=== PATIENT | female | born 1985 | race Caucasian/White ===

== ENCOUNTER 2017-09-02 12:09 | Emergency (ER) | payer BC ==
--- OUTSIDE RECORDS SUMMARY | 2017-09-02 12:11 | XMS REPORT | Clinical Summary ---
:1985 Author Organization [facility] Address [address] [place] [address] Phone Care Team Providers Name Role Phone Unavailable Primary Care Provider Unavailable Allergies Active Allergy Reactions Severity Noted Date Comments Cephalosporins Anaphylaxis High 04/05/2012 Wheat Containing Prod Other (See Comments) High 04/30/2016 GI upset Amoxicillin-Pot Clavulanate 04/27/2017 Anaphylaxis Adhesive Bandage Itching 04/30/2016 Egg 12/09/2015 GI upset Gluten Protein 12/09/2015 GI upset Hydrocodone Itching 04/05/2012 Hydrocodone-Acetaminophen Nausea And Vomiting 12/09/2015 Lactose 12/09/2015 GI upset Latex Itching 10/14/2015 Silk Other (See Comments) 04/30/2016 Body rejects Lecithin, Soy 12/09/2015 GI upset Sulfa (Sulfonamide Antibiotics) Nausea Only 04/30/2016 Current Medications Prescription Sig. Disp. Refills Start Date End Date Status pentosan polysulfate Take 100 mg by Active (ELMIRON) 100 mg mouth daily . capsule montelukast Take 10 mg by Active (SINGULAIR) 10 mg mouth nightly. tablet levocetirizine Take 5 mg by Active (XYZAL) 5 MG tablet mouth every evening. thyroid, pork, 90 mg Take 30 mg by Active Tab mouth daily. diazepam (DIAZEPAM) 5 10 mg by Active mg/mL Conc Submucosal anal canal route as needed Vaginal Suppository. Missing or Take by mouth Active Non-Formulary Anastacio mood, 3 Medication caps daily . cholecalciferol, Take 50,000 Active vitamin D3, 50,000 Units by mouth unit Tab once a week. triamcinolone 2 sprays by Active (NASACORT) 55 mcg Nasal route nasal inhaler daily. Missing or Take 750 mg by Active Non-Formulary mouth nightly Medication NEFTALI . valACYclovir Take 500 mg by Active (VALTREX) 1000 MG mouth as needed tablet . NORETHINDRONE-E.ESTRA Take 1 tablet Active DIOL-IRON (TAYTULLA by mouth ORAL) nightly . MECOBAL/LEVOMEFOLAT Take 2 mg by Active CA/B6 PHOS (METANX mouth daily . ORAL) ascorbate Take 1 tablet Active calcium-bioflavonoid by mouth daily. (FRANCESCO-C WITH BIOFLAVONOIDS) 1,000-200 mg Tab prasterone, dhea, Take 1 tablet Active (DHEA) 25 mg Tab by mouth daily . methen-m.blue-s.phos- Take 1 capsule Active phsal-hyo (URIBEL) by mouth 4 118-10-40.8-36 mg Cap (four) times daily as needed . hydrOXYzine (ATARAX) Take 25 mg by Active 25 MG tablet mouth nightly. lactase (LACTAID) Take 1 tablet Active 3,000 unit tablet by mouth 3 (three) times daily with meals. promethazine Take 1 tablet 30 tablet 0 12/15/2016 Active (PHENERGAN) 25 MG (25 mg total) tablet by mouth every 6 (six) hours as needed for Nausea. B Take 3 tablets Active fmtxeag-wuyxsk-Ca-FA by mouth daily. 1,000-75-1 mg-mg-mg/15 mL Liqd Missing or 500 mg daily Active Non-Formulary D-mamose caps-3 MedicationIndications caps . : IC acetaminophen-codeine Take 1 tablet Active (TYLENOL #3) 300-30 by mouth 3 mg per tablet (three) times daily as needed for Pain. CALCIUM Take 2 tablets Active GLYCEROPHOSPHATE by mouth 3 (PRELIEF ORAL) (three) times daily with meals If eating food with acid . Missing or 1-2 capsules Active Non-Formulary every 4 (four) Medication hours as needed Jessica leg cramps . clindamycin (CLEOCIN) Take 300 mg by Active 300 MG capsule mouth 3 (three) times daily. ibuprofen (IBUPROFEN) Take by mouth. Active 100 mg Chew predniSONE Take 10 mg by Active (DELTASONE) 10 MG mouth daily. tablet TURMERIC ROOT EXTRACT Take by mouth 12/09/19 Discontinued ORAL daily. 17 phenazopyridine Take 1 tablet 10 tablet 0 12/17/2015 12/09/19 Discontinued (PYRIDIUM) 200 MG (200 mg total) 17 tablet by mouth 3 (three) times daily. promethazine Take 25 mg by 12/16/19 Discontinued (PHENERGAN) 25 MG mouth every 6 17 tablet (six) hours as needed for Nausea. acetaminophen-codeine Take 1 tablet 12/16/19 Discontinued (TYLENOL #3) 300-30 by mouth every 17 mg per tablet 8 (eight) hours as needed for Pain . Missing or Source Naturals 12/09/19 Discontinued Non-Formulary Wellness 17 Medication Formula . vitamin E 400 UNIT Take 400 Units 12/09/19 Discontinued capsule by mouth daily. 17 ibuprofen Take 600 mg by 12/09/19 Discontinued (ADVIL,MOTRIN) 600 MG mouth every 6 17 tablet (six) hours as needed for Pain. Missing or Take by mouth 12/09/19 Discontinued Non-Formulary nightly Unisom 17 Medication . Missing or Take by mouth 12/09/19 Discontinued Non-Formulary nightly 17 Medication Minastrin 24 chew FE . ciprofloxacin HCl Take 1 tablet 10 tablet 0 12/15/2016 12/21/19 (CIPRO) 500 MG tablet (500 mg total) 17 by mouth 2 (two) times daily for 5 days. phenazopyridine Take 1 tablet 30 tablet 0 04/27/2017 05/07/20 (PYRIDIUM) 100 MG (100 mg total) 17 tablet by mouth 3 (three) times daily as needed for Pain for up to 10 days. promethazine Take 1 tablet 40 tablet 0 04/27/2017 05/07/20 (PHENERGAN) 25 MG (25 mg total) 17 tablet by mouth every 6 (six) hours as needed for Nausea for up to 10 days. acetaminophen-codeine Take 1 tablet 40 tablet 0 04/27/2017 05/07/20 (TYLENOL #4) 300-60 by mouth every 17 mg per tablet 4 (four) hours as needed for Pain for up to 10 days. Max Daily Amount: 6 tablets ciprofloxacin HCl Take 1 tablet 10 tablet 0 04/27/2017 05/02/20 (CIPRO) 500 MG tablet (500 mg total) 17 by mouth 2 (two) times daily for 5 days. 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 S/P cystoscopy 12/17/2015 Encounters Date Type Specialty Care Team Description 04/27/2017 Hospital Encounter Griffin Turner MD 04/27/2017 Procedure Pass 04/27/2017 Surgery Griffin Turner CYSTOSCOPY MD Felice 04/26/2017 Anesthesia Event Byron Draper MD 04/13/2017 Hospital Encounter Pre-Admission Griffin Turner MD 12/15/2016 Hospital Encounter Griffin Turner MD 12/15/2016 Procedure Pass 12/15/2016 Surgery Griffin Turner CYSTOSCOPY,HYDRODIS MD Felice TENTVLADISLAV 12/14/2016 Anesthesia Event Jorge Rondon MD 12/08/2016 Hospital Encounter Pre-Admission Griffin Turner MD 12/08/2016 Hospital Encounter Pre-Admission Griffin Turner MD 12/01/2016 Orders Only Urology Melonie Cristobal 11/10/2016 Hospital Encounter Pre-Admission Griffin Turner MD 11/10/2016 Hospital Encounter Griffin Turner MD 11/10/2016 Procedure Pass 11/09/2016 Anesthesia Event Rolly Ritchie MD 10/21/2016 Orders Only Urology Melonie Cristobal after 09/01/2016 Social History Tobacco Use Types Packs/Day Years Used Date Never Smoker Smokeless Tobacco: Never Used Alcohol Use Drinks/Week oz/Week Comments Yes rarely, 2 glasses of wine/month. Sex Assigned at Date Recorded Not on file Last Filed Vital Signs Vital Sign Reading Time Taken Blood Pressure 145/85 04/27/2017 11:35 AM [employer] Pulse 88 04/27/2017 12:29 PM [employer] Temperature 36.4 C (97.6 F) 04/27/2017 12:29 PM [employer] Respiratory Rate 18 04/27/2017 11:35 AM [employer] Oxygen Saturation 97% 04/27/2017 12:29 PM [employer] Inhaled Oxygen Concentration - - Weight 80.1 kg (176 lb 9.6 oz) 04/13/2017 3:15 PM [employer] Height 165.1 cm (5' 5") 04/13/2017 3:15 PM [employer] Body Mass Index 29.39 04/13/2017 3:15 PM [employer] Plan of Treatment Not on file Procedures Procedure Name Priority Date/Time Associated Diagnosis Comments CYSTOSCOPY,INSTILLATION 04/27/2017 8:30 AM [employer] Overactive bladder OF DRUGS Special Needs (BOTOX 100 UNITS) CYSTOSCOPY,BOTOX INJECTION 04/27/2017 8:30 AM [employer] MA[employer]GER Overactive bladder Special Needs (BOTOX 100 UNITS) CYSTOSCOPY,HYDRODISTENTION 04/27/2017 8:30 AM [employer] MANAGER Overactive bladder Special Needs (BOTOX 100 UNITS) CYSTOSCOPY 04/27/2017 8:30 AM [employer] MANAGER Overactive bladder Special Needs (BOTOX 100 UNITS) CYSTOSCOPY,BOTOX INJECTION 12/15/2016 9:30 AM CDT Overactive bladder CYSTOSCOPY,HYDRODISTENTION 12/15/2016 9:30 AM CDT Overactive bladder after 09/01/2016 Results hCG, quantitative, (04/27/2017 7:48 AM) Component Value Ref Range hCG Quant <1 0 - 10 mIU/mL Specimen Performing Laboratory Blood [address] [address] Narrative Non- Females: <10 mIU/mL Females: Gestation AgeReference Range(mIU/mL) 0.2-1 Week5-50 1-2 Miwzs71-204 2-3 Weeks 100-5,000 3-4 Weeks 500-10,000 4-5 Weeks 1,000-50,000 5-6 Weeks10,000-100,000 6-8 Weeks15,000-200,000 2-3 Months 10,000-100,000 Screen, urine (04/13/2017 3:44 PM)Only the most recent of3 resultswithin the time period is included. Component Value Ref Range Preg Test, Ur Negative Specimen Performing Laboratory Urine [address] [address] Hemoglobin (04/13/2017 3:44 PM)Only the most recent of2 resultswithin the time period is included. Component Value Ref Range Hemoglobin 13.7 11.2 - 15.7 GM/DL Specimen Performing Laboratory Blood [address] [address] Urinalysis w/ Microscopic (12/08/2016 1:52 PM)Only the most recent of2 resultswithin the time period is included. Component Value Ref Range Color, UA Colorless Clarity, UA Hazy Specific Snyder, UA 1.005 1.001 - 1.035 pH, UA 6.5 5.0 - 8.0 Protein, UA Negative Negative Glucose, UA Negative Negative Ketones, UA Negative Negative Bilirubin, UA Negative Negative Blood, UA Negative Negative Nitrite, UA Negative Negative Leukocytes, UA Large (A) Negative Urobilinogen, UA 0.2 0.2 - 1.0 mg/dL RBC, UA 1 /HPF WBC, UA 10 /HPF Bacteria, UA Occasional Mucus Rare Squam Epithel, UA 2 /HPF Specimen Source Specimen Performing Laboratory Urine [address] [address] Urine culture (12/08/2016 1:52 PM)Only the most recent of2 resultswithin the time period is included. Component Value Ref Range Result No growth Specimen Performing Laboratory Urine [address] [address] Hemoglobin and hematocrit (10/26/2016 2:58 PM) Component Value Ref Range Hemoglobin 15.6 (H) 12.0 - 15.0 GM/DL Hematocrit 46.9 (H) 36.0 - 45.0 % Specimen Performing Laboratory Blood [address] [address] Basic Metabolic Panel (10/26/2016 2:58 PM) Component Value Ref Range Sodium 140 136 - 145 meq/L Potassium 4.1 3.5 - 5.1 meq/L Chloride 104 98 - 107 meq/L CO2 23 22 - 29 meq/L BUN 11 7 - 21 mg/dL Creatinine 0.67 0.57 - 1.25 mg/dL Glucose 136 (H) 70 - 105 mg/dL Calcium 9.7 8.4 - 10.2 mg/dL EGFR 104Comment: ESTIMATED GFR IS NOT ACCURATE mL/min/1.73 sq m CREATININE CLEARANCE IN PREDICTING GLOMERULAR FILTRATION RATE. ESTIMATED GFR IS NOT APPLICABLE FOR DIALYSIS PATIENTS. Specimen Performing Laboratory Blood [address] [address] after 09/01/2016
--- OUTSIDE RECORDS SUMMARY | 2017-09-02 12:12 | XMS REPORT ---
:1985 [facility] Address [address] [place] [address] Dr. Lauren [address] [place] [id number] Care Team Providers Name Role Phone LINA NOGUERA SAPNA Unavailable Unavailable Problems This patient has no known problems. Allergies, Adverse Reactions, Alerts This patient has no known allergies or adverse reactions. Medications This patient has no known medications. Results Test Description Test Time Test Comments Text Results Atomic Results Result Comments HCG, QUANTITATIVE, 2017-04-27 08:47:00 Test Item Value Reference Range Comments GONADOTROPIN, CHORIONIC (HCG) QUANT (BEAKER) (test ehct=899) < mIU/mL 0- 10 Non- Females: <10 mIU/mL Females: Gestation Age Reference Range(mIU/mL) 0.2-1 Week 5-50 1-2 Weeks 50-500 2-3 Weeks 100-5,000 3-4Weeks 500-10,000 4 -5 Weeks 1,000-50,000 5-6 Weeks 10,000-100,000 6-8 Weeks 15,000-200,000 2-3 Months 10,000-100,000PREGNANCY SCREEN, [id number] 16:38:00 Test Item Value Reference Range Comments TEST URINE (BEAKER) (test nixl=387) Negative [id number] 16:02:00 Test Item Value Reference Range Comments HEMOGLOBIN (BEAKER) (test iwkk=393) 13.7 GM/DL 11.2-15.7 URINE [id number] 09:58:00 Test Item Value Reference Range Comments CULTURE (BEAKER) (test tvdu=5525) No growth URINALYSIS W/ [id number] 14:23:00 Test Item Value Reference Range Comments COLOR (BEAKER) (test paye=077) Colorless CLARITY (BEAKER) (test bakd=765) Hazy SPECIFIC GRAVITY UA (BEAKER) (test pqaj=253) 1.005 1.001-1.035 PH UA (BEAKER) (test jjrp=863) 6.5 5.0-8.0 PROTEIN UA (BEAKER) (test kyfk=087) Negative Negative GLUCOSE UA (BEAKER) (test jaqy=991) Negative Negative KETONES UA (BEAKER) (test tgxu=388) Negative Negative BILIRUBIN UA (BEAKER) (test czlc=509) Negative Negative BLOOD UA (BEAKER) (test prul=826) Negative Negative NITRITE UA (BEAKER) (test tbnc=917) Negative Negative LEUKOCYTE ESTERASE UA (BEAKER) (test hsbg=353) Large Negative UROBILINOGEN UA (BEAKER) (test febz=530) 0.2 mg/dL 0.2-1.0 RBC UA (BEAKER) (test qzbp=984) 1 /HPF WBC UA (BEAKER) (test whdt=892) 10 /HPF BACTERIA (BEAKER) (test tdfm=033) Occasional MUCUS (BEAKER) (test coec=4717) Rare SQUAMOUS EPITHELIAL (BEAKER) (test ausi=028) 2 /HPF SOURCE(BEAKER) (test ysoi=9712) [id number] 14:23:00 Test Item Value Reference Range Comments HEMOGLOBIN (BEAKER) (test alst=938) 14.7 GM/DL 12.0-15.0 SCREEN, [id number] 14:23:00 Test Item Value Reference Range Comments TEST URINE (BEAKER) (test ltdl=591) Negative URINE [id number] 11:43:00 Test Item Value Reference Range Comments CULTURE (BEAKER) (test bcyd=4191) No growth URINALYSIS W/ [id number] 16:00:00 Test Item Value Reference Range Comments COLOR (BEAKER) (test xwlo=004) Light Green CLARITY (BEAKER) (test ehdp=668) Hazy SPECIFIC GRAVITY UA (BEAKER) (test gdyi=284) 1.015 1.001-1.035 PH UA (BEAKER) (test rhzd=760) 6.0 5.0-8.0 PROTEIN UA (BEAKER) (test mvlt=250) Negative Negative GLUCOSE UA (BEAKER) (test uxkh=825) Negative Negative KETONES UA (BEAKER) (test nhht=568) Negative Negative BILIRUBIN UA (BEAKER) (test puyy=260) Negative Negative BLOOD UA (BEAKER) (test bnkg=198) Negative Negative NITRITE UA (BEAKER) (test idgi=895) Negative Negative LEUKOCYTE ESTERASE UA (BEAKER) (test zqap=306) Small Negative UROBILINOGEN UA (BEAKER) (test inis=507) 0.2 mg/dL 0.2-1.0 RBC UA (BEAKER) (test nbdv=561) 1 /HPF WBC UA (BEAKER) (test yyvl=288) 3 /HPF BACTERIA (BEAKER) (test wyhf=713) Rare MUCUS (BEAKER) (test gyxt=7673) Few SQUAMOUS EPITHELIAL (BEAKER) (test iqzb=667) 2 /HPF SOURCE(BEAKER) (test rqsx=0953) BASIC METABOLIC [id number] 15:48:00 Test Item Value Reference Range Comments SODIUM (BEAKER) (test 140 meq/L 136-145 mphd=093) POTASSIUM (BEAKER) (test 4.1 meq/L 3.5-5.1 rcas=104) CHLORIDE (BEAKER) (test 104 meq/L 98-107 jzzu=443) CO2 (BEAKER) (test 23 meq/L 22-29 gctg=600) BLOOD UREA NITROGEN 11 mg/dL 7-21 (BEAKER) (test yxif=892) CREATININE (BEAKER) (test 0.67 mg/dL 0.57-1.25 vtqm=979) GLUCOSE RANDOM (BEAKER) 136 mg/dL 70-105 (test vguf=857) CALCIUM (BEAKER) (test 9.7 mg/dL 8.4-10.2 qvde=550) EGFR (BEAKER) (test 104 mL/min/1.73 sq m ESTIMATED GFR IS NOT dmkr=5865) ACCURATE CREATININE CLEARANCE IN PREDICTING GLOMERULAR FILTRATION RATE. ESTIMATED GFR IS NOT APPLICABLE FOR DIALYSIS PATIENTS. SCREEN, [id number] 15:47:00 Test Item Value Reference Range Comments TEST URINE (BEAKER) (test fmrp=331) Negative HEMOGLOBIN AND [id number] 15:26:00 Test Item Value Reference Range Comments HEMOGLOBIN (BEAKER) (test zvet=410) 15.6 GM/DL 12.0-15.0 HEMATOCRIT (BEAKER) (test wvgz=776) 46.9 % 36.0-45.0
[2017-09-02] MEDS ORDERED: NA CHLORIDE 0.9% 1,000 ML ONE (12:24)
[2017-09-02 12:56] LABS: Bicarbonate 23 mEq/L (21-31); Glucose Level 95 mg/dL (65-120); Potassium 3.7 mEq/L (3.6-5.0); Sodium Level 137 mEq/L (135-145)
[2017-09-02 12:57] LABS: BUN Blood Urea Nitrogen 11 mg/dL (6-20)
[2017-09-02 13:08] LABS: Absolute Lymphocytes (CBC) 1.8 K/uL (0.7-4.9); Absolute Monocytes 0.3 K/uL (0.1-1.3); Basophils % 0.2 % (0-1.3); Eosinophils % 0.4 % (0-4.4); Hematocrit 42.8 % (36.0-45.0); Lymphocytes % 17.7 % (15.3-44.8); MCH 30.2 pg (27.0-35.0); Monocytes % 2.7 % (3.3-12.3); RBC Red Blood Cell Count 4.76 M/uL (3.86-4.86)
[2017-09-02 13:39] LABS: Urine Blood TRACE (NEG); Urine Glucose NEGATIVE (NEG); Urine Protein 1+ (NEG)
[2017-09-02 13:45] LABS: Urine Bacteria NONE SEEN /HPF (<20); Urine Culture Reflex Order NOT NEEDED; Urine Mucus LIGHT /HPF (NONE SEEN); Urine RBC <5 /HPF (NONE SEEN)
--- NOTE | 2017-09-02 13:54 | ER ---
Nurse's Notes [facility] Name: Maddy Rm Age: 32 yrs Sex: Female : 1985 Arrival Date: 09/02/2017 Time: 12:13 Bed 24 Private MD: Diagnosis: Dysuria;Unspecified abdominal pain Presentation: 09/02 12:15 Presenting complaint: Patient states: nausea, low grade fever, dizziness, trouble la1 sleeping, pain with urination. Transition of care: patient was not received from another setting of care. Onset of symptoms was September 02, 2017. Care prior to arrival: None. 12:15 Method Of Arrival: Ambulatory la1 12:15 Acuity: LEXY 3 la1 LEVELER: 12:16 LMP N/A - Irregular menses la1 Historical: - Allergies: 12:16 Sulfa (Sulfonamide Antibiotics); la1 12:16 CEPHALOSPORINS; la1 12:16 Hydrocodone-Acetaminophen; la1 - PMHx: 12:16 interstitial cystitis; GERD; Endometrosis; la1 - Immunization history:: Adult Immunizations up to date. - Social history:: Smoking status: Patient/guardian denies using tobacco. Screenin:36 Abuse screen: Denies threats or abuse. Denies injuries from another. Nutritional aj screening: No deficits noted. Tuberculosis screening: No symptoms or risk factors identified. Fall Risk None identified. Assessment: 12:36 General: Appears in no apparent distress. comfortable, Behavior is calm, cooperative, aj appropriate for age. Pain: Complains of pain in pelvis. Neuro: Level of Consciousness is awake, alert, obeys commands, Oriented to person, place, time, situation. Respiratory: Airway is patent Respiratory effort is even, unlabored, Respiratory pattern is regular, symmetrical. GI: Abdomen is flat, non-distended, Abd is soft Abdomen is tender to palpation in left upper quadrant and left lower quadrant. : Reports burning with urination, urinary frequency. Derm: Skin is intact, is healthy with good turgor, Skin is pink, warm \T\ dry. normal. Vital Signs: 12:16 BP 133 / 90; Pulse 121; Resp 19; Temp 98.3; Pulse Ox 100% on R/A; Weight 77.11 kg; la1 Height 5 ft. 5 in. (165.10 cm); 13:42 BP 127 / 90; Pulse 94; Resp 16; Pulse Ox 100% on R/A; aj 14:28 BP 130 / 93; Pulse 98; Resp 18; Pulse Ox 100% on R/A; aj 12:16 Body Mass Index 28.29 (77.11 kg, 165.10 cm) la1 ED Course: 12:13 Patient arrived in ED. mr 12:14 Julia Ayala FNP-C [facility]. kb 12:14 Saji Mcgraw MD is Attending Physician. kb 12:15 Triage completed. la1 12:17 Arm band placed on right wrist. la1 12:20 Shobha Green, RN is Primary Nurse. aj 12:36 Patient has correct armband on for positive identification. aj 12:36 Inserted saline lock: 20 gauge in right wrist, using aseptic technique. Blood collected.aj 13:35 Straight cath inserted, using sterile technique, 16 Fr. Specimen obtained. Returned aj blue urine. Patient tolerated well. 14:28 No provider procedures requiring assistance completed. IV discontinued, intact, aj bleeding controlled, No redness/swelling at site. Pressure dressing applied. Administered Medications: 12:35 Drug: NS 0.9% 1000 ml Route: IV; Rate: 1000 ml; Site: right hand; aj 14:29 Follow up: Response: No adverse reaction; IV Status: Completed infusion; IV Intake: aj 1000ml Intake: 14:29 IV: 1000ml; Total: 1000ml. aj Outcome: 13:53 Discharge ordered by . kb 14:28 Discharged to home ambulatory. aj 14:28 Condition: good 14:28 Discharge instructions given to patient, Instructed on discharge instructions, follow up and referral plans. Demonstrated understanding of instructions, follow-up care. 14:29 Patient left the ED. aj Signatures: Julia Ayala FNP-C FNP-Shobha Epperson, RN RN Samanta Singer Lee, RN RN sandy
--- NOTE | 2017-09-02 13:54 | EDPHYS ---
Physician Documentation [facility] Name: Maddy Rm Age: 32 yrs Sex: Female : 1985 Arrival Date: 09/02/2017 Time: 12:13 Bed 24 Private MD: ED Physician Saji Mcgraw HPI: 09/02 12:51 This 32 yrs old Female presents to ER via Ambulatory with complaints of kb Fever, Urinary Problem, Pain All Over, Nausea. 12:51 The patient presents with urinary symptoms, dysuria, frequency. kb 12:52 Onset: The symptoms/episode began/occurred yesterday. Modifying factors: The symptoms kb are alleviated by nothing, the symptoms are aggravated by urinating. Associated signs and symptoms: Pertinent positives: dysuria, fever, urinary frequency. Severity of symptoms: At their worst the symptoms were moderate, in the emergency department the symptoms are unchanged. The patient has experienced similar episodes in the past, several times. The patient has not recently seen a physician. 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 - Social history:: Smoking status: Patient/guardian denies using tobacco. ROS: 12:55 ENT: Negative for injury, pain, and discharge, Neck: Negative for injury, pain, and kb swelling, Cardiovascular: Negative for chest pain, palpitations, and edema, Respiratory: Negative for shortness of breath, cough, wheezing, and pleuritic chest pain, Abdomen/GI: Negative for abdominal pain, nausea, vomiting, diarrhea, and constipation, Back: Negative for injury and pain, MS/Extremity: Negative for injury and deformity, Skin: Negative for injury, rash, and discoloration, Neuro: Negative for headache, weakness, numbness, tingling, and seizure. 12:55 Constitutional: Positive for body aches, chills, fatigue, fever, malaise, Negative for poor PO intake, weight loss. 12:55 : Positive for urinary symptoms, urinary frequency, burning with urination. Exam: 12:55 Constitutional: This is a well developed, well nourished patient who is awake, alert, kb and in no acute distress. Head/Face: Normocephalic, atraumatic. ENT: Nares patent. No nasal discharge, no septal abnormalities noted. Tympanic membranes are normal and external auditory canals are clear. Oropharynx with no redness, swelling, or masses, exudates, or evidence of obstruction, uvula midline. Mucous membranes moist. Neck: Trachea midline, no thyromegaly or masses palpated, and no cervical lymphadenopathy. Supple, full range of motion without nuchal rigidity, or vertebral point tenderness. No Meningismus. Chest/axilla: Normal chest wall appearance and motion. Nontender with no deformity. No lesions are appreciated. Cardiovascular: Regular rate and rhythm with a normal S1 and S2. No gallops, murmurs, or rubs. Normal PMI, no JVD. No pulse deficits. Respiratory: Lungs have equal breath sounds bilaterally, clear to auscultation and percussion. No rales, rhonchi or wheezes noted. No increased work of breathing, no retractions or nasal flaring. Skin: Warm, dry with normal turgor. Normal color with no rashes, no lesions, and no evidence of cellulitis. MS/ Extremity: Pulses equal, no cyanosis. Neurovascular intact. Full, normal range of motion. Neuro: Awake and alert, GCS 15, oriented to person, place, time, and situation. Cranial nerves II-XII grossly intact. Motor strength 5/5 in all extremities. Sensory grossly intact. Cerebellar exam normal. Normal gait. 12:55 Abdomen/GI: Inspection: abdomen appears normal, Bowel sounds: normal, in all quadrants, Palpation: soft, in all quadrants, mild abdominal tenderness, in the left upper quadrant and left lower quadrant. 12:55 Back: ROM is normal, normal spinal alignment noted, CVA tenderness, that is mild, is noted on the left. Vital Signs: 12:16 BP 133 / 90; Pulse 121; Resp 19; Temp 98.3; Pulse Ox 100% on R/A; Weight 77.11 kg; la1 Height 5 ft. 5 in. (165.10 cm); 13:42 BP 127 / 90; Pulse 94; Resp 16; Pulse Ox 100% on R/A; aj 14:28 BP 130 / 93; Pulse 98; Resp 18; Pulse Ox 100% on R/A; aj 12:16 Body Mass Index 28.29 (77.11 kg, 165.10 cm) la1 MDM: 12:17 Patient medically screened. kb 12:56 Data reviewed: vital signs, nurses notes. Data interpreted: Pulse oximetry: on room air kb is 100 %. Interpretation: normal. 13:49 Counseling: I had a detailed discussion with the patient and/or guardian regarding: the kb historical points, exam findings, and any diagnostic results supporting the discharge/admit diagnosis, lab results, the need for outpatient follow up, a family practitioner, to return to the emergency department if symptoms worsen or persist or if there are any questions or concerns that arise at home. 09/02 12:17 Order name: Urine Microscopic Only; Complete Time: 13:48 kb 09/02 12:25 Order name: CBC with Diff; Complete Time: 13:09 kb 09/02 12:25 Order name: Basic Metabolic Panel; Complete Time: 12:57 kb 09/02 12:25 Order name: Harris Screen Profile; Complete Time: 13:04 kb 09/02 12:25 Order name: Flu; Complete Time: 12:56 kb 09/02 13:36 Order name: Urine Dipstick--Ancillary (enter results); Complete Time: 13:44 mw2 09/02 12:17 Order name: Urine Test (obtain specimen); Complete Time: 13:50 kb 09/02 12:17 Order name: Urine Dipstick-Ancillary (obtain specimen); Complete Time: 13:50 kb 09/02 12:25 Order name: IV Start; Complete Time: 12:35 kb 09/02 13:36 Order name: Urine --Ancillary (enter results); Complete Time: 13:44 mw2 Administered Medications: 12:35 Drug: NS 0.9% 1000 ml Route: IV; Rate: 1000 ml; Site: right hand; aj 14:29 Follow up: Response: No adverse reaction; IV Status: Completed infusion; IV Intake: aj 1000ml Disposition: 15:33 Co-signature as Attending Physician, Saji Mcgraw MD I agree with the assessment and wa plan of care. Disposition: 09/02/17 13:53 Discharged to Home. Impression: Dysuria, Unspecified abdominal pain. - Condition is Stable. - Discharge Instructions: Abdominal Pain, Adult, [id number]. - Medication Reconciliation Form, Thank You Letter, Antibiotic Education, Prescription Opioid Use form. - Follow up: Emergency Department; When: As needed; Reason: Worsening of condition. Follow up: Private Physician; When: 2 - 3 days; Reason: Recheck today's complaints, Continuance of care, Re-evaluation by your physician. Signatures: Dispatcher [employer] Julia Pulido, RUDI MOYA-Shobha Epperson RN RN aj Attema, Lee, RN RN la1 Saji Mcgraw MD MD fl
[2017-09-02 14:39] VITALS: TEMP 98.3; O2SAT 100
[2017-09-02 14:43] VITALS: BP 130/93
== END 2017-09-02 14:29 | disposition home or self-care (01) ==
LOC: ER 12:09
DX: R30.0 Dysuria (principal); R10.9 Unspecified abdominal pain; Z88.2 Allergy status to sulfonamides; Z88.6 Allergy status to analgesic agent
CPT/HCPCS: 36415; 51702; 80048; 81003; 81015; 81025; 85025; 86308; 87804; 96360; 96361; 99283; J7030